=== PATIENT | female | born 1960 | race Caucasian/White ===

== ENCOUNTER → 2016-07-23 | Outpatient (CLI) | payer BC ==
[~2016-07-23] MED LIST: LORA10TA7 PO; MULT-1026 PO; OMG1KC PO; SPIR50TA29 PO; SPRN25T PO
--- NOTE | 2016-07-24 14:47 | Diagnostic Imaging Report ---
EXAMINATION: DIG JOSE BILAT SCREEN W CAD. COMPARISON: 06/06/2015 and 02/18/2013. INDICATION: Screening mammography. TECHNIQUE: Digital screening mammography was obtained with a computer-aided detection (CAD) system. FINDINGS: The breasts are heterogeneously dense which may obscure small masses. There are increasing regional asymmetries with possible underlying masses with obscured margins in the left upper outer posterior breast near the 1 o'clock position. Regional microcalcifications have also increased in this area. The right breast remains stable without evidence of malignancy. IMPRESSION: 1. New regional asymmetry with possible underlying masses in the left upper outer quadrant. Additionally, the microcalcifications in this region have increased in number. Recommend additional spot compression, spot magnification, and true lateral imaging of the left breast for further evaluation. Ultrasound may be required at the time of additional mammographic imaging. ACR BI-RADS Category 0: Incomplete. (Needs additional imaging evaluation). Result letter will be mailed to the patient. Note: At least 10% of breast cancer is not imaged by mammography. Dictated by: Dictated on workstation # [id number]
== END ==
LOC: RAD 11:34
PROVIDERS: ATTEND Family Medicine
DX: Z12.31 Encounter for screening mammogram for malignant neoplasm of breast (principal)

== ENCOUNTER → 2016-08-07 | Outpatient (CLI) | payer BC ==
--- NOTE | 2016-08-07 13:42 | Diagnostic Imaging Report ---
PROCEDURE: US Breast limited, left. TECHNIQUE: Multiple realtime grayscale images were obtained over the left breast in various projections. INDICATION: Increased densities on screening mammogram were questioned. EXAMINATION: Ultrasound of the left breast dated 08/07/2016. FINDINGS: Grayscale and color Doppler ultrasound imaging of the left upper outer quadrant of the breast was performed from 11 to 4 o'clock. Diffuse dense fibrocystic changes are noted, considered a benign process. There are no measurable suspicious masses or lesions appreciated. These findings likely cause the areas of increased density on mammography; however, given the calcifications on mammography, a 6 month followup mammogram would be recommended to assure stability. IMPRESSION: Benign findings on sonogram. A 6 month followup mammogram is recommended as discussed above. BI-RADS Category 3: Probably benign findings. Result letter will be mailed to the patient. Note: At least 10% of breast cancer is not imaged by mammography. Dictated by: Dictated on workstation # [id number]
--- NOTE | 2016-08-09 16:52 | Diagnostic Imaging Report ---
INDICATION: Follow-up calcifications and density seen on recent screening. EXAMINATION: Left breast diagnostic mammogram dated 08/07/2016. COMPARISON: 07/23/2016, 06/06/2015, as well as 02/18/2013. The current study was also evaluated with a Computer Aided Detection (CAD) system. FINDINGS: Spot magnification imaging of the breast is performed and multiple diffuse calcifications are noted. A definite change is not seen in the interval but given the diffuse nature, this is a probable benign process. A short-term interval follow-up six-month mammogram recommended to assure stability. The more dense areas were further evaluated sonographically and no underlying suspicious abnormalities are seen. IMPRESSION: 1. Multiple diffuse calcifications described above. six-month follow-up recommended to assure stability. ACR BI-RADS Category 3: Probably benign findings. Result letter will be mailed to the patient. Note: At least 10% of breast cancer is not imaged by mammography. Dictated by: Dictated on workstation # [id number]
== END ==
LOC: RAD 10:59
PROVIDERS: ATTEND Family Medicine
DX: N64.59 Other signs and symptoms in breast (principal)
CPT/HCPCS: 76642; G0206